=== PATIENT | male | born 1960 | race African-American/Black ===

== ENCOUNTER 2016-11-14 08:15 | Emergency (ER) | payer MEDICAID, OTHER ==
[~2016-11-14] VITALS: Ht 182.9 cm; Wt 140.0 kg
[2016-11-14] MEDS ORDERED: ONDANSETRON HCL 4MG/2ML VIAL IV STA (08:25)
[2016-11-14] MEDS ORDERED: SODIUM CHLORIDE 0.9% 1,000 ML IV ONE (08:25)
[2016-11-14] MEDS ORDERED: MORPHINE SULFATE 4 MG/ML CPJ (NOT FOR IM USE) IV STA (08:25)
[2016-11-14] MEDS ORDERED: ETOMIDATE 2MG/ML 10ML VIAL IV ONE (09:00)
[2016-11-14 10:37] VITALS: BP 145/89
== END 2016-11-14 10:52 | disposition home or self-care (01) ==
LOC: ER 08:21
DX: S43.004A Unspecified dislocation of right shoulder joint, initial encounter (principal); W01.0XXA Fall on same level from slipping, tripping and stumbling without subsequent striking against object, initial encounter; Y93.89 Activity, other specified; Y99.8 Other external cause status; Y92.89 Other specified places as the place of occurrence of the external cause
CPT/HCPCS: 23650; 73030; 96374; 96375; 99152; 99285; J2270; J2405; J3490; J7030; Z7610; L3670